=== PATIENT | female | born 1950 | race Caucasian/White ===

== ENCOUNTER → 2017-09-12 | Outpatient (CLI) | payer MEDICARE | END | disposition home or self-care (01) | LOC: KCIC 13:59 | DX: M19.042 Primary osteoarthritis, left hand (principal); M81.8 Other osteoporosis without current pathological fracture; Z91.81 History of falling | CPT/HCPCS: 73130 ==

== ENCOUNTER → 2018-04-27 | Outpatient (CLI) | payer MEDICARE ==
[2017-06-13 15:00] VITALS: BP 158/64
[~2018-04-27] MED LIST: ALEN70TA3 PO; ALEN70TA5 PO; ASPI-482 PO; ASPI-630 PO; ATOR10TA60 PO; CALC-77 PO; CALC500T54 PO; ESTR10TA VG; GABA-585 PO; GLUC100018 PO; LATA2.5D3 OD; MULT1TAB52 PO; OLOP5DRO EACHEYE; OMEG500C3 PO; PANT40TA5 PO
--- NOTE | 2018-05-05 16:28 | EKG ---
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 Very few premature ventricular and supraventricular ectopic beats noted accounting to less than 1% of the total number of beats. No significant arrhythmias were seen. CONCLUSIONS Holter monitor did not show any significant arrhythmias. Electronically Signed On 05-11-2018 11:10:58 [employer] [employer] by Justin Ford
== END | disposition home or self-care (01) ==
LOC: EKG 09:30
PROVIDERS: ATTEND Family Medicine
DX: I49.1 Atrial premature depolarization (principal); R00.0 Tachycardia, unspecified
CPT/HCPCS: 93225; 93226

== ENCOUNTER → 2018-05-21 | Outpatient (CLI) | payer MEDICARE ==
[2017-06-13 15:00] VITALS: BP 158/64
--- NOTE | 2018-05-21 12:54 | KCIC ---
Bilateral digital screening mammograms: Reason for examination: Routine screening. Interval weight loss. Comparison is made to previous studies dated 11/10/2015 and 08/08/2014. Interpretation was made with the benefit of CAD. The skin and nipples show no abnormalities. No abnormal axillary lymph nodes are seen. The breast parenchyma shows scattered fibroglandular density. (Breast density: Category B.) There continues to be a nodular density in the central left breast which is stable. There are small nodules present bilaterally which have benign appearances and appear to be stable. There is however some increased nodularity suggested in the subareolar 11:00 position of the left breast. There are no other dominant masses, suspicious calcifications or architectural distortions. Some benign calcifications are present. Impression: Focally increased nodularity suggested anteriorly in the subareolar 11:00 position of the left breast. Recommend further evaluation with coned compression views and ultrasound. BI-RADS category 0: Incomplete. Needs additional imaging evaluation. "Our facility is accredited by the [employer] Mammography Program." This patient's information has been entered into a reminder system for the patient to be notified with the results of her examination and a target date for the next mammogram. Electronically signed by: Vale Haji MD (05/21/2018 12:51 PM) [id number]
--- NOTE | 2018-05-21 15:52 | KCIC ---
Complete abdomen ultrasound study Clinical indications: Abdominal pain on the left side FINDINGS: The pancreas is homogeneous without focal enlargement. The proximal abdominal aorta and the IVC are obscured by overlying bowel gas. The mid and distal abdominal aorta is visualized without aneurysmal dilatation. There is diffuse attenuation of sound throughout the liver which limits sonographic evaluation of the liver for focal hepatic lesions. This may be seen with fatty infiltration of the liver. The liver measures 15.5 cm in length which is normal. There is a complex cyst of the right lobe of the liver measuring 2.1 cm in size. The gallbladder is not well seen in this study but no gallstones or gallbladder wall thickening is seen. The extrahepatic bile duct is mildly dilated measuring 7.7 mm in caliber. The length of the right kidney is 10.2 cm and the length of the left kidney is 10.6 cm. No hydronephrosis or renal mass or perinephric fluid collection is seen on either side. The spleen measures 7.4 cm in length which is normal. No ascites is seen. IMPRESSION: Fatty infiltration of the liver. Complex 2.1 cm hepatic cyst. Mild dilatation of the extra hepatic bile duct measuring 7.7 mm in caliber. Recommend correlation with liver function tests. Electronically signed by: Ahsan Ortiz MD (05/21/2018 3:48 PM) [place] [id number]
== END | disposition home or self-care (01) ==
LOC: KCIC US 08:00
PROVIDERS: ATTEND Family Medicine
DX: Z12.31 Encounter for screening mammogram for malignant neoplasm of breast (principal); K76.89 Other specified diseases of liver; K76.0 Fatty (change of) liver, not elsewhere classified
CPT/HCPCS: 76700; 77067

== ENCOUNTER → 2018-06-02 | Outpatient (CLI) | payer MEDICARE ==
[2017-06-13 15:00] VITALS: BP 158/64
--- NOTE | 2018-06-02 10:54 | KCIC ---
EXAM: Left breast diagnostic mammogram; left breast sonogram. HISTORY: 67-year-old female presents for evaluation of nodularity within the left breast demonstrated on a screening mammogram dated 05/21/2018. TECHNIQUE: Spot compression views of left breast are obtained. Sonographic imaging of the left breast targeted to the anterior 11:00 position was also performed. COMPARISON: Mammograms dated 05/21/2018 and 11/10/2015. BREAST PARENCHYMAL DENSITY: Level B - Scattered fibroglandular densities. FINDINGS: There is no clear persistent suspicious finding within the anterior left breast with the additional spot compression views. There is a stable circumscribed density posterior to the region of concern compared to the prior studies. Sonographic imaging of the left breast demonstrates a 12 mm cyst at the 11:00 position 2 cm from the nipple and 4 mm cyst at the 1:00 position 4 cm from the nipple. There are dilated ducts within the 12:00 subareolar location. There is a questionable filling defect within a duct within this location which does not persist between radial and antiradial images, likely due to artifact from a duct wall or adjacent parenchyma. IMPRESSION: 1. No persistent suspicious mammographic finding. 2. Small cysts within the left breast and dilated ducts within the subareolar left breast. There is suspected artifactual filling defect within a duct at the 12:00 subareolar location which does not persist between radial and antiradial images. 3. BI-RADS Category 3: Probably benign finding(s). Precautionary short-term follow up with a left breast sonogram in 6 months is recommended to confirm benignity. if your mammogram demonstrates that you have dense breast tissue, which could hide abnormalities, and if you have other risk factors for breast cancer that have been identified, you might benefit from supplemental screening tests that may be suggested by your ordering physician. Dense breast tissue, in and of itself, is a relatively common condition. This information is not provided to cause undue concern, but rather to raise your awareness and to promote discussion with your physician regarding the presence of other risk factors, in addition to dense breast tissue. A report of your mammography results will be sent to you and your physician. You should contact your physician if you have any questions or concerns regarding this report. Mammography is a sensitive method for finding small breast cancers, but it does not detect them all and is not a substitute for careful clinical examination. A negative mammogram does not negate a clinically suspicious finding and should not result in delay in biopsying a clinically suspicious abnormality. PQRS compliance statement - Patient information was entered into a reminder system with a target due date for the next mammogram. "Our facility is accredited by the [employer] Mammography Program." Electronically signed by: Bev Walton MD (06/02/2018 10:51 AM) [id number]
== END | disposition home or self-care (01) ==
LOC: KCIC MAMMO 09:43
PROVIDERS: ATTEND Family Medicine
DX: N60.02 Solitary cyst of left breast (principal)
CPT/HCPCS: 76641; 77065

== ENCOUNTER → 2018-07-06 | Outpatient (CLI) | payer MEDICARE ==
[2017-06-13 15:00] VITALS: BP 158/64
--- NOTE | 2018-07-06 12:18 | KCIC ---
Indication: Postmenopausal, osteoporosis TECHNIQUE: DEXA scan COMPARISON: Previous exam from 05/21/2016 FINDINGS: The bone mineral density at L1-L4 measures 0.964 g/sq cm with T score of -0.8, previously -0.9. The bone mineral density in left femoral neck measures 0.623 g/sq cm with T score of -2.6, previously -2.3. IMPRESSION: Interval development of osteoporosis in the left femoral neck. Stable normal bone mineral density in the lumbar spine. Electronically signed by: Flaquito Martinez DO (07/06/2018 12:13 PM) [id number]
== END | disposition home or self-care (01) ==
LOC: KCIC DEXA 11:24
PROVIDERS: ATTEND Family Medicine
DX: M81.0 Age-related osteoporosis without current pathological fracture (principal); Z78.0 Asymptomatic menopausal state
CPT/HCPCS: 77080

== ENCOUNTER → 2018-12-01 | Outpatient (CLI) | payer MEDICARE ==
[2017-06-13 15:00] VITALS: BP 158/64
[~2018-12-01] MED LIST changes: -ALEN70TA5 PO; +ALEN70TA6 PO
--- NOTE | 2018-12-01 10:47 | KCIC ---
Left breast ultrasound: Reason for examination: Follow-up for nodules. Comparison is made to previous study dated 06/02/2018. Ultrasound examination of the left breast was performed in the areas of previous concern and at the axilla. There continue to be lesions consistent with cysts at the 11:00 position 2 cm from the nipple measuring 1.2 cm in greatest dimension and in the 1:00 position 4 cm from measuring 3.8 mm in greatest dimension. There continues to be ductal ectasia. No intraductal defects are identified to suggest intraductal lesion. No abnormal appearing lymph nodes are seen in the axilla. IMPRESSION: Cysts at the 1:00 and 11:00 position. Ductal ectasia in the subareolar 12:00 position. No suspicious abnormality seen. Recommend routine mammographic follow-up. BI-RADS Category 2: Benign. "Our facility is accredited by the [employer] Mammography [employer]." This patient's information has been entered into a reminder system for the patient to be notified with the results of her examination and a target date for the next mammogram. Electronically signed by: Vale Haji MD (12/01/2018 10:44 AM) [id number]
== END | disposition home or self-care (01) ==
LOC: KCIC US 10:03
PROVIDERS: ATTEND Family Medicine
DX: N60.02 Solitary cyst of left breast (principal); N60.42 Mammary duct ectasia of left breast
CPT/HCPCS: 76641

== ENCOUNTER → 2019-06-04 | Outpatient (CLI) | payer MEDICARE ==
[2017-06-13 15:00] VITALS: BP 158/64
[~2019-06-04] MED LIST changes: -PANT40TA5 PO; +PANT40TA77 PO
--- NOTE | 2019-06-04 12:17 | KCIC ---
Bilateral digital screening mammograms: Reason for examination: Routine screening. Comparison is made to previous studies dated 05/21/2018 and 11/10/2015. Interpretation was made with the benefit of CAD. The skin and nipples show no abnormalities. No abnormal axillary lymph nodes are seen. The breast parenchyma is heterogeneously dense. (Breast density: Category C) There continue to be small parenchymal densities bilaterally consistent with history of cysts with improvement in the largest cyst seen previously in the left breast. There are no new dominant masses, suspicious calcifications or architectural distortion. A few benign calcifications are again seen. Impression: No evidence of malignancy. Recommend routine screening. Your patient's mammogram demonstrates that she has dense breast tissue (breast density category C or D), which could hide abnormalities, and if she has other risk factors for breast cancer that have been identified, she might benefit from supplemental screening tests that may be suggested by you as her ordering physician. Dense breast tissue, in and of itself, is a relatively common condition. Therefore, this information is not provided to cause undue concern, but rather to raise your awareness and to promote discussion with your patient regarding the presence of other risk factors, in addition to dense breast tissue. Your patient's mammography results will be sent to her. BI-RADS Category 2: Benign. "Our facility is accredited by the [employer] Mammography Program." This patient's information has been entered into a reminder system for the patient to be notified with the results of her examination and a target date for the next mammogram. Electronically signed by: Vale Haji MD (06/04/2019 12:14 PM) [id number]
== END | disposition home or self-care (01) ==
LOC: KCIC MAMMO 11:03
PROVIDERS: ATTEND Family Medicine
DX: Z12.31 Encounter for screening mammogram for malignant neoplasm of breast (principal); N64.89 Other specified disorders of breast
CPT/HCPCS: 77067

== ENCOUNTER → 2019-06-04 | Outpatient (CLI) | payer MEDICARE ==
[2017-06-13 15:00] VITALS: BP 158/64
--- NOTE | 2019-06-04 15:12 | KCIC ---
3 views of the left wrist without comparison for pain on the radial aspect. FINDINGS: There is no fracture, dislocation, or acute osseous abnormality identified. No significant degenerative changes. No radiopaque foreign bodies. IMPRESSION: 1. No acute osseous abnormality of the left wrist. Electronically signed by: Zhen Walter MD (06/04/2019 3:09 PM) [facility]
== END | disposition home or self-care (01) ==
LOC: KCIC 11:48
PROVIDERS: ATTEND Family Medicine
DX: M25.532 Pain in left wrist (principal)
CPT/HCPCS: 73110

== ENCOUNTER → 2020-07-10 | Outpatient (CLI) | payer MEDICARE ==
[2017-06-13 15:00] VITALS: BP 158/64
[~2020-07-10] MED LIST changes: -ALEN70TA6 PO; +ALEN70TA71 PO; +MULT-445 PO; -MULT1TAB52 PO
--- NOTE | 2020-07-10 10:06 | KCIC ---
EXAM: DUAL ENERGY X-RAY ABSORPTIOMETRY (DEXA). HISTORY: Postmenopausal screening. FINDINGS: The lowest measured T-score is -2.5 in the left total femur, based on a bone mineral densit y of 0.639 g/cm^2. Refer to the worksheets for full detail. In comparison with the prior study of 07/06/2018, average bone mineral density at the lumbar spine berrios s changed -5.7%, while the average density at the hips has changed +2.5%. IMPRESSION: Low bone mass. Bone mineral density yields a T-score between -1.0 and -2.5. Fracture risk is increase d. FRAX was not calculated. METHODOLOGY: Dual energy x-ray absorptiometry was performed to measure bone mineral density. The foll owing analysis is based on the 2019 Official Positions of the International Society for Clinical Dens itometry: Measurements of the hips and the average of L1-L4 are preferred. When the spine and/or hip cannot be feasibly measured or interpreted, or in the setting of hyperparathyroidism, distal radial bone minera l density may be measured. The lumbar spine T-score is based on the average bone mineral density of L1-L4. In the setting of art ifact or anatomic abnormality, some lumbar levels may be excluded, and the remaining levels used for calculation. A single lumbar level is not used for diagnosis, and if only a single level is available for assessment, another anatomic site will be used to assign a diagnosis. The hip T-score is based on the bone mineral density measurement of the femoral neck or total proxima l femur of either side, whichever is lowest. Bilateral mean values are not used for diagnosis. The forearm T-score is derived from 33% of the distal radius of the nondominant forearm. For postmenopausal and perimenopausal women, and men age 50 or older, of all ethnic groups, T-scores are calculated through comparison of the current measurement with the NHANES III database standard fo r females aged 20-29 years. The lowest T-score of the evaluated anatomic sites is used to a ssign a diagnosis based on the World Health Organization densitometric classification. In premenopausal females and males younger than age 50, a Z-score is calculated based on population s pecific reference data for patient sex and self-reported ethnicity. Electronically signed by: Salvador Ibarra MD (07/10/2020 10:03 AM) [id number]
--- NOTE | 2020-07-10 10:31 | KCIC ---
EXAM: Bilateral digital screening mammogram with tomosynthesis. HISTORY: 69-year-old female presents for screening mammography. TECHNIQUE: Full-field digital craniocaudal and mediolateral oblique 2D and 3D tomosynthesis images of both breasts are obtained for evaluation. Computer aided detection was applied. COMPARISON: 06/04/2019 and 06/02/2018 and 05/21/2018 BREAST PARENCHYMAL DENSITY: Level C - Heterogeneously dense. FINDINGS: There is no new suspicious mass, microcalcification or region of architectural distortion. There are stable areas of asymmetry and nodularity within both breasts. There are multiple benign amy cifications. IMPRESSION: BI-RADS Category 2: Benign finding(s). RECOMMENDATION: Annual mammography is recommended. If your mammogram demonstrates that you have dense breast tissue, which could hide abnormalities, and if you have other risk factors for breast cancer that have been identified, you might benefit from s upplemental screening tests that may be suggested by your ordering physician. Dense breast tissue, i n and of itself, is a relatively common condition. This information is not provided to cause undue c oncern, but rather to raise your awareness and to promote discussion with your physician regarding th e presence of other risk factors, in addition to dense breast tissue. A report of your mammography re sults will be sent to you and your physician. You should contact your physician if you have any ques tions or concerns regarding this report. Mammography is a sensitive method for finding small breast cancers, but it does not detect them all a nd is not a substitute for careful clinical examination. A negative mammogram does not negate a clin ically suspicious finding and should not result in delay in biopsying a clinically suspicious abnorma lity. PQRS compliance statement - Patient information was entered into a reminder system with a target due date for the next mammogram. "Our facility is accredited by the [employer] Mammography Program." Electronically signed by: Bev Walton MD (07/10/2020 10:29 AM) [id number]
== END ==
LOC: KCIC DEXA 08:39
PROVIDERS: ATTEND Family Medicine
DX: Z12.31 Encounter for screening mammogram for malignant neoplasm of breast (principal); M81.0 Age-related osteoporosis without current pathological fracture
CPT/HCPCS: 77063; 77067; 77080